=== PATIENT | female | born 1965 | race Hispanic/Latino ===

== ENCOUNTER 2016-08-09 23:25 | Emergency (ER) | payer SELFPAY ==
[2016-08-09 23:25] VITALS: BMI 34.9
[2016-08-09 23:48] VITALS: TEMP 98.1
--- NOTE | 2016-08-10 00:09 | ED PDOC ---
Arrival/HPI - General Chief Complaint: Dizziness/Lightheaded Time Seen by Provider: 08/09/16 23:55 Historian: Patient - History of Present Illness Narrative History of Present Illness (Text): 08/10/16 00:05 Kathryn Degroot is a 50 year old female, with no significant past medical history, presents to the emergency department complaining of dizziness and room-spinning sensation of past two days. Reports that symptoms are worsened with movement and notes of a mild headache currently. Denies fever, chills, chest pain, shortness of breath, nausea, vomiting, diarrhea, or any other complaints at this time. Time/Duration: < week (2 days ) Symptom Onset: Gradual Symptom Course: Unchanged Severity Level: Mild Activities at Onset: Light Context: Home Past Medical History - Provider Review Nursing Documentation Reviewed: Yes - Infectious Disease Hx of Infectious Diseases: None - Hematological/Oncological Hx Anemia: Yes - Psychiatric Hx Substance Use: No - Anesthesia Hx Anesthesia: No Family/Social History - Physician Review Nursing Documentation Reviewed: Yes Family/Social History: No Known Family HX Smoking Status: Light Smoker < 10 Cigarettes Daily Hx Alcohol Use: Yes Hx Substance Use: No Allergies/Home Meds Allergies/Adverse Reactions: Allergies No Known Allergies Allergy (Verified 10/10/15 23:20) Review of Systems - Physician Review All systems were reviewed & negative as marked: Yes - Review of Systems Constitutional: Normal. absent: Fatigue, Fevers Respiratory: Normal. absent: SOB, Cough Cardiovascular: Normal. absent: Chest Pain Gastrointestinal: Normal. absent: Abdominal Pain, Diarrhea, Nausea, Vomiting Neurological: Headache, Dizziness. absent: Focal Weakness, Gait Changes, Speech Changes Psychiatric: Normal Physical Exam Vital Signs Reviewed: Yes Vital Signs Temp Pulse Resp BP Pulse Ox 08/10/16 02:50 69 16 117/72 97 08/10/16 01:00 67 16 130/89 96 08/09/16 23:47 98.1 F 75 18 139/85 97 Temperature: Afebrile Blood Pressure: Normal Pulse: Regular Respiratory Rate: Normal Appearance: Positive for: Well-Appearing, Non-Toxic, Comfortable Pain Distress: None Mental Status: Positive for: Alert and Oriented X 3 - Systems Exam Head: Present: Atraumatic, Normocephalic Pupils: Present: PERRL Extroacular Muscles: Present: EOMI Conjunctiva: Present: Normal Ears: Present: NORMAL TM Mouth: Present: Moist Mucous Membranes Pharnyx: Present: Normal Neck: Present: Normal Range of Motion. No: Meningeal Signs Respiratory/Chest: Present: Clear to Auscultation, Good Air Exchange. No: Respiratory Distress, Accessory Muscle Use Cardiovascular: Present: Regular Rate and Rhythm, Normal S1, S2. No: Murmurs Abdomen: Present: Normal Bowel Sounds. No: Tenderness, Distention, Peritoneal Signs Upper Extremity: Present: Normal Inspection, Normal ROM, NORMAL PULSES, Neurovascularly Intact, Capillary Refill < 2s. No: Cyanosis, Edema Lower Extremity: Present: Normal Inspection, NORMAL PULSES, Normal ROM, Neurovascularly Intact, Capillary Refill < 2 s. No: Edema, CALF TENDERNESS, Greg's Sign, Tenderness, Swelling, Deformity Neurological: Present: GCS=15, CN II-XII Intact, Speech Normal, Motor Func Grossly Intact, Normal Sensory Function Skin: Present: Warm, Dry, Normal Color. No: Rashes Psychiatric: Present: Alert, Oriented x 3, Normal Insight, Normal Concentration Medical Decision Making ED Course and Treatment: 08/10/16 00:10 Impression: A 50 year old female who presents to the ed complaining of dizziness and room spinning sensation for 2 days. Plan: -- EKG -- CT Head -- Lans -- Meclizine. Progress Notes: 08/10/16 00:12 EKG interpreted by me: NSR @ 68 bpm. Normal axis. Normal interval. 08/10/16 02:56 CT Head Without Intravenous Contrast reviewed . FINDINGS: Artifacts: Motion artifact slightly limits evaluation despite multiple scanning around. Brain: There is no evidence of intracranial hemorrhage. No evidence of acute territorial infarction. No significant white matter disease. No edema. Ventricles: Unremarkable. No ventriculomegaly. Bones/joints: Unremarkable. No acute fracture. Soft tissues: Unremarkable. Sinuses: Unremarkable as visualized. No acute sinusitis. Mastoid air cells: Unremarkable as visualized. No mastoid effusion. IMPRESSION: 1. Motion artifact slightly limits evaluation despite multiple scanning around. 2. No evidence for acute intracranial abnormality or displaced calvarial fracture. 3. Additional incidental and/or chronic findings as described. - Lab Interpretations Lab Results: 08/10/16 00:30 08/10/16 00:30 Lab Results 08/10/16 00:30: WBC 8.4, RBC 4.50, Hgb 13.9, Hct 40.5, MCV 90.0, MCH 30.9, MCHC 34.3, RDW 14.1, Plt Count 293, MPV 8.8, Sodium 137, Potassium 4.0, Chloride 103 , Carbon Dioxide 26, Anion Gap 12, BUN 18, Creatinine 0.6, Est GFR ( Amer ) > 60, Est GFR (Non-Af Amer) > 60, Random Glucose 92, Calcium 9.4, Total Bilirubin 0.5, AST 25, ALT 29, Alkaline Phosphatase 53, Total Protein 7.6, Albumin 3.9, Globulin 3.6, Albumin/Globulin Ratio 1.1 I have reviewed the lab results: Yes - RAD Interpretation Radiology Orders: 08/10/16 00:04 HEAD W/O CONTRAST [CT] Stat Vocational Training Instructor: Radiologist - EKG Interpretation Interpreted by ED Physician: Yes Type: 12 lead EKG - Medication Orders Current Medication Orders: Discontinued Medications Meclizine HCl (Antivert) 25 mg PO STAT STA Stop: 08/10/16 00:06 Last Admin: 08/10/16 00:21 Dose: 25 MG - Scribe Statement The provider has reviewed the documentation as recorded by the Charlotte Hamilton Provider Attestation: All medical record entries made by the Charlotte were at my direction and personally dictated by me. I have reviewed the chart and agree that the record accurately reflects my personal performance of the history, physical exam, medical decision making, and the department course for this patient. I have also personally directed, reviewed, and agree with the discharge instructions and disposition. Disposition/Present on Arrival - Present on Arrival Any Indicators Present on Arrival: No History of DVT/PE: No History of Uncontrolled Diabetes: No Urinary Catheter: No History of Decub. Ulcer: No History Surgical Site Infection Following: None - Disposition Have Diagnosis and Disposition been Completed?: Yes Diagnosis: Labyrinthitis, acute Disposition: HOME/ ROUTINE Disposition Time: 02:59 Patient Plan: Discharge Condition: GOOD Discharge Instructions (ExitCare): Labyrinthitis (ED) Additional Instructions: Take meds as prescribed/follow up with the neurologist this week. Prescriptions: Meclizine [Meclizine*] 25 mg PO Q6 PRN #21 tab PRN Reason: Dizziness
[2016-08-10 00:45] LABS: HEMATOCRIT 40.5 % (36.0-48.0); MEAN CORPUSCULAR HEMOGLOBIN 30.9 pg (25.0-35.0); MEAN CORPUSCULAR HGB CONC 34.3 g/dl (31.0-37.0); MEAN PLATELET VOLUME 8.8 fl (7.0-11.0); RED CELL DISTRIBUTION WIDTH 14.1 % (11.5-14.5); WHITE BLOOD COUNT 8.4 10^3/ul (4.5-11.0)
[2016-08-10 00:55] LABS: ALB/GLOB RATIO 1.1 (1.1-1.8); ALKALINE PHOSPHATASE 53 U/L (38-133); ALT/SGPT 29 U/L (7-56); AST/SGOT 25 U/L (15-39); BILIRUBIN,TOTAL 0.5 mg/dL (0.2-1.3); BLOOD UREA NITROGEN 18 mg/dL (7-21); CALCIUM 9.4 mg/dL (8.4-10.5); CARBON DIOXIDE 26 mmol/L (21-33); CHLORIDE 103 mmol/L (98-107); GFR AFRICAN-AMERICAN > 60; GLUCOSE,RANDOM 92 mg/dL (70-110); SODIUM 137 mmol/L (132-148); TOTAL PROTEIN 7.6 g/dL (5.8-8.3)
--- NOTE | 2016-08-10 02:04 | CT ---
EXAM: CT Head Without Intravenous Contrast CLINICAL HISTORY: 50 years old, female; Signs and symptoms; Dizziness; Additional info: Dizzy TECHNIQUE: Axial computed tomography images of the head/brain without intravenous contrast. This CT exam was performed using one or more of the following dose reduction techniques: automated exposure control, adjustment of the mA and/or kV according to patient size, and/or use of iterative reconstruction technique. COMPARISON: No relevant prior studies available. FINDINGS: Artifacts: Motion artifact slightly limits evaluation despite multiple scanning around. Brain: There is no evidence of intracranial hemorrhage. No evidence of acute territorial infarction. No significant white matter disease. No edema. Ventricles: Unremarkable. No ventriculomegaly. Bones/joints: Unremarkable. No acute fracture. Soft tissues: Unremarkable. Sinuses: Unremarkable as visualized. No acute sinusitis. Mastoid air cells: Unremarkable as visualized. No mastoid effusion. IMPRESSION: 1. Motion artifact slightly limits evaluation despite multiple scanning around. 2. No evidence for acute intracranial abnormality or displaced calvarial fracture. 3. Additional incidental and/or chronic findings as described.
[2016-08-10 02:55] VITALS: RESP 16
[2016-08-10 02:56] VITALS: BP 117/72; PULSE 69; O2SAT 97
--- NOTE | 2016-08-10 09:31 | CARD ---
APPROVED REPORT EKG Measurement Heart [id number] <Conclusion> Normal sinus rhythm Normal ECG No change
== END 2016-08-10 03:19 | disposition home or self-care (01) ==
LOC: ED 23:25
DX: H83.09 Labyrinthitis, unspecified ear (principal)

== ENCOUNTER 2018-04-21 21:40 | Emergency (ER) | payer OTHER ==
[2018-04-21 21:52] VITALS: TEMP 98.6; BMI 32.1
[2018-04-21 22:46] LABS: BASO # 0.03 K/mm3 (0.0-2.0); BASO % 0.3 % (0.0-3.0); EOS # 0.2 (0.0-0.7); EOS % 2.1 % (1.5-5.0); GRAN # 4.23 (1.4-6.5); GRAN % 46.4 % (50.0-68.0); HEMOGLOBIN 14.1 g/dL (12.0-16.0); LYMPH # 4.2 (1.2-3.4); LYMPH % 45.9 % (22.0-35.0); MEAN CELL VOLUME 91.7 fl (80.0-105.0); MEAN CORPUSCULAR HEMOGLOBIN 30.1 pg (25.0-35.0); MEAN CORPUSCULAR HGB CONC 32.8 g/dl (31.0-37.0); MEAN PLATELET VOLUME 9.1 fl (7.0-11.0); MONO # 0.5 (0.1-0.6); MONO % 5.3 % (1.0-6.0); RBC 4.69 10^6/uL (3.5-6.1); RED CELL DISTRIBUTION WIDTH 14.6 % (11.5-14.5); WHITE BLOOD COUNT 9.1 10^3/uL (4.5-11.0)
[2018-04-21 23:00] LABS: ALB/GLOB RATIO 1.2 (1.1-1.8); ALBUMIN 4.1 g/dL (3.0-4.8); ALT/SGPT 21 U/L (7-56); AST/SGOT 35 U/L (14-36); BLOOD UREA NITROGEN 17 mg/dL (7-21); CALCIUM 9.6 mg/dL (8.4-10.5); GFR NON-AFRICAN AMERICAN > 60
[2018-04-21] MEDS ORDERED: Iohexol 350 MG/100 ML VIAL ONE (23:06)
--- NOTE | 2018-04-22 00:05 | ED PDOC ---
Arrival/HPI - General Chief Complaint: ENT Problem Time Seen by Provider: 04/21/18 21:42 Historian: Patient - History of Present Illness Narrative History of Present Illness (Text): 04/21/18 22:00 52 year old female, with no significant past medical history, presents to the emergency department complaining of losing her voice. Patient denies any other symptoms. Patient is an on and off smoker for many years. Patient denies any pain, fever, chills, difficulty swallowing, any recent URI, chest pain, shortness of breath, nausea, vomiting, diarrhea, urinary symptoms, back pain, neck pain, headache, dizziness, or any other complaints. PMD: Dr. Adler Symptom Onset: Sudden Symptom Course: Unchanged Activities at Onset: Light Context: Home Past Medical History - Provider Review Nursing Documentation Reviewed: Yes - Infectious Disease Hx of Infectious Diseases: None - Reproductive Menopause: Yes - Hematological/Oncological Hx Anemia: Yes - Psychiatric Hx Anxiety: Yes Hx Substance Use: No - Anesthesia Hx Anesthesia: No Family/Social History - Physician Review Nursing Documentation Reviewed: Yes Family/Social History: No Known Family HX Smoking Status: Light Smoker < 10 Cigarettes Daily Hx Alcohol Use: Yes Hx Substance Use: No Allergies/Home Meds Allergies/Adverse Reactions: Allergies No Known Allergies Allergy (Verified 10/10/15 23:20) Review of Systems - Physician Review All systems were reviewed & negative as marked: Yes - Review of Systems Constitutional: absent: Fevers, Other (Chills) ENT: Voice Changes (lost her voice). absent: Other (difficulty swallowing ) Respiratory: absent: SOB, Cough Cardiovascular: absent: Chest Pain Gastrointestinal: absent: Diarrhea, Nausea, Vomiting Genitourinary Female: absent: Dysuria, Frequency, Hematuria Musculoskeletal: absent: Back Pain, Neck Pain Neurological: absent: Headache, Dizziness Physical Exam Vital Signs Reviewed: Yes Vital Signs Temp Pulse Resp BP Pulse Ox 04/21/18 21:44 98.6 F 89 16 129/80 96 Temperature: Afebrile Blood Pressure: Normal Pulse: Regular Respiratory Rate: Normal Appearance: Positive for: Well-Appearing, Non-Toxic, Comfortable Pain Distress: None Mental Status: Positive for: Alert and Oriented X 3 - Systems Exam Head: Present: Atraumatic, Normocephalic Pupils: Present: PERRL Extroacular Muscles: Present: EOMI Conjunctiva: Present: Normal Mouth: Present: Moist Mucous Membranes Pharnyx: Present: Normal. No: ERYTHEMA, EXUDATE, TONSILS ENLARGED, Peritonsilar Swelling, Uvular Deviation, Muffled/Hoarse Voice, Strider, Soft Palate/Uvular Edema Neck: Present: Normal Range of Motion. No: Meningeal Signs, Lymphadenopathy, Other (No palpable mass on neck) Respiratory/Chest: Present: Clear to Auscultation, Good Air Exchange. No: Respiratory Distress, Accessory Muscle Use Cardiovascular: Present: Regular Rate and Rhythm, Normal S1, S2. No: Murmurs Neurological: Present: GCS=15, CN II-XII Intact, Speech Normal Skin: Present: Warm, Dry, Normal Color. No: Rashes Psychiatric: Present: Alert, Oriented x 3, Normal Insight, Normal Concentration Medical Decision Making ED Course and Treatment: 04/21/18 22:00 Impression: 52 year old female presents complaining of losing her voice with no other complaints. Plan: -- CT Neck soft tissue w/ contrast -- Labs -- POC Urine test -- Reassess and disposition Progress Notes: Labs reviewed and wnl. PROCEDURE: CT SOFT TISSUE NECK WITH CONTRAST Electronically signed on Apr 22, 2018 2:19:07 AM EST by: Tosin Torres M.D. IMPRESSION: Mild hypertrophy of the palatine tonsils, probably mild inflammatory pathology. No other abnormality is seen. On reevaluation, patient's symptoms are improving, she is regaining her normal voice. On exam, patient remains awake alert and oriented 3 in no acute distress, speaking in full sentences without drooling. Lab and CT results discussed with the patient. Advised to follow up with primary care physician and ENT in 1-2 days without fail. Return to the emergency room at any time for any new or worsening symptoms. Patient states she fully agrees with and understands discharge instructions. States that she agrees with the plan and disposition. Verbalized and repeated discharge instructions and plan. I have given the patient opportunity to ask any additional questions. - Lab Interpretations Lab Results: 04/21/18 22:33 04/21/18 22:33 Lab Results 04/21/18 22:33: Sodium 144, Potassium 3.8, Chloride 109 H, Carbon Dioxide 29, Anion Gap 10, BUN 17, Creatinine 0.8, Est GFR ( Amer) > 60, Est GFR (Non- Af Amer) > 60, Random Glucose 121 H, Calcium 9.6, Total Bilirubin 0.3, AST 35, ALT 21, Alkaline Phosphatase 66, Total Protein 7.5, Albumin 4.1, Globulin 3.3, Albumin/Globulin Ratio 1.2 04/21/18 22:33: WBC 9.1, RBC 4.69, Hgb 14.1, Hct 43.0, MCV 91.7, MCH 30.1, MCHC 32.8, RDW 14.6 H, Plt Count 296, MPV 9.1, Gran % 46.4 L, Lymph % (Auto) 45.9 H, [place] % (Auto) 5.3, Eos % (Auto) 2.1, Baso % (Auto) 0.3, Gran # 4.23, Lymph # (Auto) 4.2 H, [place] # (Auto) 0.5, Eos # (Auto) 0.2, Baso # (Auto) 0.03 I have reviewed the lab results: Yes - RAD Interpretation Radiology Orders: 04/21/18 22:08 NECK SOFT TISSUE W/CONTRAST [CT] Stat - PA / ELECTRONICS MAINTENANCE TECHNICIAN / Resident Statement MD/DO has reviewed & agrees with the documentation as recorded. - Scribe Statement The provider has reviewed the documentation as recorded by the Charlotte Doe Provider Scribe Attestation: All medical record entries made by the Charlotte were at my direction and personally dictated by me. I have reviewed the chart and agree that the record accurately reflects my personal performance of the history, physical exam, medical decision making, and the department course for this patient. I have also personally directed, reviewed, and agree with the discharge instructions and disposition. Disposition/Present on Arrival - Present on Arrival Any Indicators Present on Arrival: No History of DVT/PE: No History of Uncontrolled Diabetes: No Urinary Catheter: No History of Decub. Ulcer: No History Surgical Site Infection Following: None - Disposition Have Diagnosis and Disposition been Completed?: Yes Diagnosis: Laryngitis, Tonsillitis Disposition: HOME/ ROUTINE Disposition Time: 02:00 Patient Plan: Discharge Condition: STABLE Discharge Instructions (ExitCare): Laryngitis Additional Instructions: Thank you for letting us take care of you today. You were treated for laryngitis. The emergency medical care you received today was directed at your acute symptoms. It may take several days for your symptoms to resolve. Return to the Emergency Department if your symptoms worsen, do not improve, or if you have any other problems. Please contact your doctor in 2 days for re-evaluation and follow up / or call one of the physicians/clinics you have been referred to that are listed on the Patient Visit Information form that is included in your discharge packet. Bring any paperwork you were given at discharge with you along with any medications you are taking to your follow up visit. Our treatment cannot replace ongoing medical care by a primary care provider (PCP) outside of the emergency dep artment. Thank you for allowing the [facility] team to be part of your care today. If you had a CT scan: A Radiologist will review the ED reading if any change in treatment is needed we will contact you. Prescriptions: RX: Amoxicillin 500 mg PO TID #30 tablet Referrals: Mia Adler DO [Primary Care Provider] - Follow up with primary Moo Donaldson DO [Staff Provider] - Follow up with primary Forms: sambaash (Bangladeshi), WORK NOTE
[2018-04-22 02:28] VITALS: BP 128/84; PULSE 72; RESP 20; O2SAT 99
--- NOTE | 2018-04-22 09:22 | CARD ---
APPROVED REPORT Date of service: 04/21/2018 EKG Measurement Heart [id number] <Conclusion> Normal sinus rhythm Normal ECG No change
--- NOTE | 2018-04-22 11:57 | CT ---
Date of service: 04/22/2018 PROCEDURE: CT NECK WITH CONTRAST HISTORY: lost voice COMPARISON: None available. TECHNIQUE: CT of the neck with intravenous contrast. Coronal and sagittal reformats generated. Intravenous contrast dose: Radiation dose: Total exam DLP = 584.94 mGy-cm. This CT exam was performed using one or more of the following dose reduction techniques: Automated exposure control, adjustment of the mA and/or kV according to patient size, and/or use of iterative reconstruction technique. FINDINGS: NASOPHARYNX: Unremarkable. SUPRAHYOID NECK: Unremarkable oropharynx, oral cavity, parapharyngeal space and retropharyngeal space. INFRAHYOID NECK: Unremarkable larynx, hypopharynx, and supraglottic space. Vocal cords intact. MASS: None. GLANDS: Parotid and submandibular glands unremarkable. Normal size thyroid gland, without nodule. LYMPH NODES: Normal. No lymphadenopathy. CERVICAL SPINE: No fracture or focal lesion. VASCULAR STRUCTURES: Unremarkable. OTHER FINDINGS: None. IMPRESSION: Unremarkable contrast enhanced CT of the neck.
== END 2018-04-22 02:27 | disposition home or self-care (01) ==
LOC: ED 21:40
DX: J04.0 Acute laryngitis (principal); J03.90 Acute tonsillitis, unspecified; F17.210 Nicotine dependence, cigarettes, uncomplicated
CPT/HCPCS: 70491; 80053; 85025; 93005; 99283; Q9967

== ENCOUNTER 2018-08-19 14:02 | Emergency (ER) | payer OTHER ==
[2018-08-19 14:07] VITALS: BMI 31.1
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
[2018-08-19 15:34] LABS: ACETAMINOPHEN < 10.0 ug/ml (10.0-20.0); SALICYLATE < 1 mg/dL (2.0-20.0)
[2018-08-19 15:35] LABS: ALBUMIN 4.2 g/dL (3.0-4.8); BASO # 0.04 K/mm3 (0.0-2.0); BASO % 0.4 % (0.0-3.0); BLOOD UREA NITROGEN 14 mg/dL (7-21); CALCIUM 9.5 mg/dL (8.4-10.5); EOS # 0.1 (0.0-0.7); EOS % 0.6 % (1.5-5.0); GFR NON-AFRICAN AMERICAN > 60; HEMOGLOBIN 14.7 g/dL (12.0-16.0); LYMPH # 2.2 (1.2-3.4); LYMPH % 21.1 % (22.0-35.0); MEAN CELL VOLUME 90.9 fl (80.0-105.0); MEAN CORPUSCULAR HEMOGLOBIN 30.4 pg (25.0-35.0); MEAN CORPUSCULAR HGB CONC 33.4 g/dl (31.0-37.0); MEAN PLATELET VOLUME 9.2 fl (7.0-11.0); MONO # 0.3 (0.1-0.6); MONO % 3.2 % (1.0-6.0); RBC 4.84 10^6/uL (3.5-6.1); RED CELL DISTRIBUTION WIDTH 14.3 % (11.5-14.5); WHITE BLOOD COUNT 10.5 10^3/uL (4.5-11.0)
[2018-08-19 15:36] LABS: ALB/GLOB RATIO 1.2 (1.1-1.8); ALT/SGPT 29 U/L (7-56); AST/SGOT 33 U/L (14-36)
[2018-08-19 15:37] LABS: URINE BILIRUBIN NEGATIVE (NEGATIVE); URINE BLOOD TRACE-INTACT (NEGATIVE); URINE GLUCOSE (UA) NEGATIVE (NEGATIVE); URINE LEUKOCYTE ESTERASE NEGATIVE Leu/uL (NEGATIVE); URINE PROTEIN NEGATIVE mg/dL (<30 mg/dL); URINE UROBILINOGEN 0.2 E.U./dL (<1 E.U./dL)
[2018-08-19 15:45] LABS: BARBITURATES, UR NEGATIVE (NEGATIVE); BENZODIAZEPINES, UR NEGATIVE (NEGATIVE); OPIATES, UR NEGATIVE (NEGATIVE); PHENCYCLIDINE, UR NEGATIVE (NEGATIVE); URINE APPEARANCE CLEAR (CLEAR); URINE COLOR YELLOW (YELLOW)
[2018-08-19 15:50] LABS: URINE BACTERIA MANY /hpf; URINE WBC 0 - 2 /hpf (0-6)
[2018-08-19 17:38] VITALS: PULSE 85; TEMP 98; O2SAT 98
[2018-08-19 18:37] VITALS: BP 128/86; RESP 17
== END 2018-08-19 18:36 ==
LOC: ED 14:02
DX: F41.9 Anxiety disorder, unspecified (principal); S20.312A Abrasion of left front wall of thorax, initial encounter; X78.1XXA Intentional self-harm by knife, initial encounter; F17.210 Nicotine dependence, cigarettes, uncomplicated